=== PATIENT | female | born 2000 | race Caucasian/White ===

== ENCOUNTER 2019-02-16 06:02 | Inpatient (IN) ==
[2019-02-16] MEDS ORDERED: MEPERIDINE 50 MG/1 ML VIAL IV PRN (06:15)
[2019-02-16] MEDS: LACTATED RINGERS 1,000 ML IV SCH ×2 (06:43→15:37)
[2019-02-16 07:10] LABS: Basophils % 0.3 % (0.0-0.8); Eosinophils # 0.2 10*3/uL (0.0-0.87); Eosinophils % 1.8 % (0.00-10.9); Hematocrit 36.6 VOL% (35.7-47.0); Hemoglobin 11.9 GM/DL (12.0-16.0); Immature Granulocytes % 0.4 %; Immature Granulocytes Absolute 0.04 #; Lymphocytes # 2.7 10*3/uL (1.4-4.0); Lymphocytes % 27.2 % (21.3-54.2); Mean Corpuscular HGB Conc 32.5 GM/DL (32-36); Mean Corpuscular Volume 83.2 FL (87-102); Mean Platelet Volume 10.5 FL (9.6-12.0); Monocytes % 8.4 % (1.7-12.7); Neutrophils % 61.9 % (38.7-73.9); Platelet Count 276 T/CUMM (130-400); Red Cell Distribution Width 13.5 % (9.3-17.3); White Blood Count 9.9 T/CUMM (4-12)
[2019-02-16 07:37] LABS: Alanine Aminotransferase < 9 U/L (13-56); Albumin 2.8 G/DL (3.4-5.0); Alkaline Phosphatase 135 U/L (45-117); Aspartate Amino Transferase 14 U/L (0-37); Bilirubin,Total < 0.39 MG/DL (0.2-1.0); Blood Urea Nitrogen 12 MG/DL (7-18); Calcium 9.3 MG/DL (8.5-10.1); Estimated Glom Filtration Rate 148 ML/MIN; Glucose 83 MG/DL (74-106); Osmolality,Calculated 279.3 MOS/KG (273-304); Total Protein 6.7 G/DL (6.4-8.3)
[2019-02-16] MEDS: ONDANSETRON 4 MG/2 ML VIAL IV PRN (19:15)
[2019-02-16] MEDS: BUTORPHANOL 2 MG/ML VIAL IV PRN ×2 (19:17→22:55)
[2019-02-16] MEDS ORDERED: OXYTOCIN/LR 20 UNIT/1,000 ML BAG IV SCH (19:45)
[2019-02-17] MEDS: BUTORPHANOL 2 MG/ML VIAL IV PRN (02:04)
[2019-02-17] MEDS: ONDANSETRON 4 MG/2 ML VIAL IV PRN (02:06)
[2019-02-17] MEDS: LACTATED RINGERS 1,000 ML IV SCH (03:30)
[2019-02-17] MEDS ORDERED: OXYTOCIN/LR 20 UNIT/1,000 ML BAG IV ONE ×2 (05:28→08:54)
[2019-02-17] MEDS ORDERED: ceFAZolin 3,000 MG in SYRINGE 1 EACH IV ONE (05:29)
[2019-02-17] MEDS ORDERED: FAMOTIDINE 20 MG/2 ML VIAL IV ONE (05:29)
[2019-02-17] MEDS ORDERED: CITRIC ACID/SODIUM CITRATE 30 ML UDCUP PO ONE (05:29)
[2019-02-17] MEDS ORDERED: METHYLERGONOVINE 0.2 MG/1 ML AMP ONE (06:52)
[2019-02-17] MEDS ORDERED: CARBOPROST TROMETHAMINE 250 MCG/ML AMP IM ONE (06:52)
[2019-02-17] MEDS ORDERED: TRANEXAMIC ACID 1,000 MG/10 ML VIAL ONE (06:52)
[2019-02-17] MEDS ORDERED: miSOPROStoL 200 MCG TABLET ONE (06:52)
[2019-02-17] MEDS ORDERED: BUPIVACAINE 0.5% 50 ML VIAL ONE (06:58)
[2019-02-17] MEDS ORDERED: PHENYLEPHRINE 1 MG/10 ML SYRINGE IV ONE ×2 (06:58→08:58)
[2019-02-17] MEDS ORDERED: BUPIVACAINE SPINAL 0.75% 2 ML AMP SPINAL ONE (06:58)
[2019-02-17] MEDS ORDERED: EPINEPHrine 1 MG/ML VIAL ONE (06:58)
[2019-02-17] MEDS ORDERED: fentaNYL 100 MCG/2 ML VIAL ONE (06:59)
[2019-02-17] MEDS ORDERED: MORPHINE 10 MG/10 ML VIAL ONE (06:59)
[2019-02-17] MEDS ORDERED: KETOROLAC 30 MG/1 ML VIAL ONE (06:59)
[2019-02-17] MEDS ORDERED: DEXAMETHASONE 4 MG/1 ML VIAL ONE (07:00)
[2019-02-17] MEDS ORDERED: RHO(D) IMMUNE GLOBULIN 300 MCG SYRINGE IM ONE (08:54)
[2019-02-17] MEDS ORDERED: MAGNESIUM HYDROXIDE SUSP 30 ML UDCUP PO PRN (08:54)
[2019-02-17] MEDS ORDERED: ACETAMINOPHEN 325 MG TABLET PO PRN (08:54)
[2019-02-17] MEDS ORDERED: SIMETHICONE CHEW 80 MG TABLET PO PRN (08:54)
[2019-02-17] MEDS ORDERED: ONDANSETRON 4 MG/2 ML VIAL IV PRN (08:54)
[2019-02-17] MEDS ORDERED: hydrOXYzine HCL 25 MG/1 ML VIAL IM PRN (08:55)
[2019-02-17] MEDS ORDERED: HYDROmorphone 2 MG/1 ML VIAL IV PRN (08:55)
[2019-02-17] MEDS ORDERED: diphenhydrAMINE 50 MG/1 ML VIAL IV PRN (08:55)
[2019-02-17] MEDS ORDERED: ceFAZolin 1,000 MG in SYRINGE 1 EACH IV SCH (09:00)
[2019-02-17] MEDS ORDERED: LACTATED RINGERS 1,000 ML IV SCH (09:00)
[2019-02-17 09:23] LABS: Apearance,Urine CLEAR (Clear); Bacteria,Urine Occasional /HPF (Few); Bilirubin,Urine Negative (Negative); Blood, Urine Negative (Negative); Glucose,Urine (UA) Negative (Negative); Ketones,Urine 80 mg/dL (Negative); Mucus,Urine Occasional /LPF (Occasional); Nitrite,Urine Negative (Negative); Protein,Urine Negative; RBC,Urine 1 /HPF (0-4); Squamous Epithelial Cell,Urine Occasional /HPF (0-10); Urine Color Yellow (Yellow); Urine Specific Gravity 1.015 (1.001-1.035); Urine Urobilinogen < 2.0 EU/DL (0.2-1.0); WBC,Urine <1 /HPF (0-6)
[2019-02-17] MEDS: DOCUSATE SODIUM 100 MG CAPSULE PO SCH ×2 (10:01→22:04)
[2019-02-17] MEDS: KETOROLAC 30 MG/1 ML VIAL IV SCH ×2 (15:02→21:58)
[2019-02-17] MEDS: ceFAZolin 1,000 MG in SYRINGE 1 EACH IV SCH (17:44)
[2019-02-18] MEDS: ceFAZolin 1,000 MG in SYRINGE 1 EACH IV SCH (00:45)
[2019-02-18] MEDS: KETOROLAC 30 MG/1 ML VIAL IV SCH (03:32)
[2019-02-18 05:53] LABS: Basophils # 0.1 10*3/uL (0.0-0.2); Basophils % 0.4 % (0.0-0.8); Eosinophils # 0.1 10*3/uL (0.0-0.87); Eosinophils % 1.1 % (0.00-10.9); Hematocrit 30.8 VOL% (35.7-47.0); Hemoglobin 9.8 GM/DL (12.0-16.0); Immature Granulocytes % 0.8 %; Immature Granulocytes Absolute 0.11 #; Lymphocytes # 2.8 10*3/uL (1.4-4.0); Lymphocytes % 21.2 % (21.3-54.2); Mean Corpuscular HGB Conc 31.8 GM/DL (32-36); Mean Corpuscular Volume 84.8 FL (87-102); Mean Platelet Volume 10.4 FL (9.6-12.0); Monocytes % 9.8 % (1.7-12.7); Neutrophils % 66.7 % (38.7-73.9); Platelet Count 231 T/CUMM (130-400); Red Blood Count 3.63 MC/CUMM (3.8-5.5); White Blood Count 13.3 T/CUMM (4-12)
[2019-02-18] MEDS: MULTIVITAMIN (PRENATAL) TABLET PO SCH (08:42)
[2019-02-18] MEDS: DOCUSATE SODIUM 100 MG CAPSULE PO SCH ×2 (08:43→21:07)
[2019-02-18] MEDS: oxyCODONE/ACETAMINOPHEN 5-325 MG TABLET PO PRN ×3 (11:54→20:29)
[2019-02-18] MEDS: IBUPROFEN 800 MG TABLET PO PRN ×2 (11:55→20:29)
[2019-02-19] MEDS: oxyCODONE/ACETAMINOPHEN 5-325 MG TABLET PO PRN ×2 (03:16→10:33)
[2019-02-19] MEDS: IBUPROFEN 800 MG TABLET PO PRN (03:29)
[2019-02-19] MEDS: DOCUSATE SODIUM 100 MG CAPSULE PO SCH (08:06)
[2019-02-19] MEDS: MULTIVITAMIN (PRENATAL) TABLET PO SCH (08:07)
[2019-02-19 09:22] VITALS: BP 117/57
[2019-02-19] MEDS ORDERED: MEASLES/MUMPS/RUBELLA VACCINE 0.5 ML VIAL SUBCUT ONE (14:08)
== END 2019-02-19 15:30 | disposition home or self-care (01) | DRG 540 ==
LOC: N.LDOUT 06:02 → N.LD 06:07 → N.OB 02-17 10:49
PROVIDERS: ADMIT Obstetrics & Gynecology; ATTEND Obstetrics & Gynecology
PROC: LDCSECT (ICD-10-PCS; 2019-02-17 07:15)